=== PATIENT | female | born 2000 | race Two or more races ===

== ENCOUNTER 2024-02-28 09:13 | Emergency (ER) | payer SELFPAY ==
[2024-02-28 09:15] VITALS: PULSE 84; RESP 16; O2SAT 98; BMI 24.9
[2024-02-28 09:20] VITALS: BP 106/65; PULSE 79; RESP 18; TEMP 36.8; O2SAT 100
--- NOTE | 2024-02-28 09:27 | XR_ITS ---
Examination: CTA chest with intravenous contrast 2-D reconstructions 3-D reconstructions, vascular Date and time of exam: February 28, 2024 1102 hrs. Indications: Syncopal episodes this morning with shortness of breath chest pain CTDI: vol (mGy) 10.1 DLP: (mGycm) 219 Technique: Multiple axial sections of the thorax have been obtained. 3 mm slice thickness, from below the hemidiaphragms to above the apices of the lungs. Mediastinal and lung density settings have been obtained. 2-D sagittal and coronal reconstructions. 3-D angiographic renderings, 3-D volume renderings, 3D post processing, vascular maximum intensity projections obtained. Contrast administered is 100 cc Isovue-370. Low dose protocols were performed. One or more of the following dose reduction techniques were used; automated exposure control, adjustment of the mA and/or KV according to patient size, use of iterative reconstruction technique. Findings: No thoracic aortic aneurysmal dilatation or dissection Pulmonary artery opacification is not optimal No gross pulmonary artery emboli No paratracheal tracheobronchial or bronchopulmonary adenopathy No pneumonia, pulmonary edema or pleural disease No visualized liver or splenic lesion No gallstones No pancreatic mass Kidneys partially visualized no hydronephrosis Mild thoracic spondylosis Impression: No thoracic aortic aneurysmal dilatation or dissection Pulmonary artery opacification is not optimal, no pulmonary artery emboli are noted No pulmonary edema or aspiration pneumonia
--- NOTE | 2024-02-28 09:27 | EKG_ITS ---
[facility] Test Date: 2024-02-28 Pat Name: CHILANGO DAVALOS Department: Room: - Gender: Female [employer]: : [id number] Requested By: Chad Donato Order Number: [id number] Reading MD: Chad Donato Measurements Intervals [place] Rate: 86 P: 63 NV: 150 QRS: 59 QRSD: 74 T: 30 QT: 344 QTc: 412 Interpretive Statements SINUS RHYTHM No previous ECG available for comparison /store/S0/[id number].pdf
--- NOTE | 2024-02-28 09:27 | XR_ITS ---
Examination: CT brain head without contrast. 2-D sagittal coronal reconstructions Date and time of exam:February 28, 2024 11:03 AM Indications: Headaches several days with syncopal episode this morning CTDI: vol (mGy):47.5 DLP: (mGycm):902 Technique: Multiple CT axial sections of the brain have been obtained, 5 mm slice thickness. Contrast has not been administered. 2-D sagittal, coronal reconstructions have been obtained Low dose protocols were performed. One or more of the following dose reduction techniques were used; automated exposure control, adjustment of the mA and/or KV according to patient size, use of iterative reconstruction technique. Findings: No significant ventricular enlargement. Intra-axial or extra-axial hemorrhage density is not seen. No mass effect or midline shift Basal cisterns are not remarkable. Fourth ventricle is midline. Cranial vault intact. Impression: Negative for acute hemorrhage, mass effect or midline shift Advise clinical correlation follow-up accordingly
--- NOTE | 2024-02-28 09:44 | EDNOTE_ITS ---
ED Syncope RME/HPI General Chief Complaint: Syncope / Near Syncope Stated Complaint: SYNCOPE Time Seen by Provider: 02/28/24 09:21 Arrival date/time: 02/28/24 09:13 RME / HPI RME / HPI narrative: This section includes all my notes and documentations, including HPI, PE, and ED course.? Chad Ramirez MD HPI: 23 year old female here with about 2 week history of worsening cough, productive cough, purulent sputum, and dyspnea. And decreased appetite and minimal oral intake for several days. Went to PCP just [facility] and had syncope. No other complaints. ROS: All negative except as documented in HPI. Physical Exam: General:? Alert and oriented.? Hacking cough noted. Eyes:? Conjunctivae and lids clear.? EOMI.? PERRL. ENT:? No nasal congestion.? Pharynx normal.? Tympanic membrane normal bilaterally.??? Neck:? Supple.? No carotid bruit. ?? Heart:? RRR.? Lungs:? No respiratory distress.? Mildly decreased air movement with rhonchi. Abdomen:? Soft and nontender.? Normal bowel sounds.? No distension.? No rebound or guarding.?? Back:? No CVA tenderness.?? Legs:? No clubbing, cyanosis, edema.? Skin:? Warm and dry.?? Neuro:? Alert and oriented X 3.? Cranial Nerves II-XII grossly intact.? No peripheral motor deficits. Musculoskeletal:? All major joints and bones are not tender with no limited ROM.? I reviewed EMS notes. I reviewed all diagnostic test results. My interpretation of the EKG is sinus rhythm with nonspecific ST-T changes. My review of the head CT report is no acute findings. My review of the chest CT report is no PE. Blood tests unremarkable. Covid/Influenza/RSV/Strep/[place] negative. At this point, diagnoses include?Bronchitis and Syncope due dehydration. Treatment here included?IVF, Toradol (for headache), and Zithromax. Significant improvement noted subjectively and objectively. Based on my best medical judgment, made decision no further evaluation or treatment indicated at this time.? Patient understands and agrees to the discharge instructions customized and printed, see below. Discharge instructions from Dr. Ramirez: --After extensive evaluation, there is no life-threatening condition. Such as stroke or brain tumor or heart attack. --You have bronchitis and you passed out from dehydration. --No physical exertion for 3 days to help rest the lungs. No smoking or exposure to smoking or pets or dust or cold or humidity. --Zithromax to kill the germs causing the bronchitis. --Prednisone to help decrease the swelling in the airways. --Albuterol 2 puffs every 4-6 hours as needed for cough or shortness of breath. --To prevent passing out again, eat regular nutritious meals. For good hydration, increase oral fluid and maintain clear urine. If dark or yellow, increase oral fluid. --See a private doctor on 03/01/2024. Ask to review all test results and official radiology reports, to make sure you receive all necessary follow-ups and monitoring. To make sure there is no serious underlying heart condition, ask to help you get more tests for your heart that cannot be done here in the ER. Such as Holter Monitor (cardiac monitoring at home from a day to even a month), heart stress test (on treadmill or with medication), echocardiogram (imaging of your heart structures), heart catherization (checking for blockages in your heart arteries), and a referral to see a Dealership General Manager. And ask for help with MRI imaging of the brain and referral to see neurologist. --Seek immediate medical care with worsening or with any concerns. Chad Ramirez MD Related Data Previous Rx's ?Medication ?Instructions ?Recorded albuterol sulfate 90 mcg/actuation 2 inh inhalation QID PRN shortness 02/28/24 aerosol inhaler of breath or wheezing #8.5 grams Allergies Allergy/AdvReac Type Severity Reaction Status Date / Time No Known Allergies Allergy Verified 02/28/24 09:24 Course Quality Measures none Orders Category Date Time Status Bedside COVID-19 Antigen Test NOW Care 02/28/24 09:27 Completed Bedside Influenza A&B Antigen Test NOW Care 02/28/24 09:[address] Screening NOW Care 02/28/24 09:27 Completed EKG (ED ONLY) *Do not use* NOW Care 02/28/24 09:27 Completed Saline [Insert IV] NOW Care 02/28/24 09:[address] angio chest Stat Exams 02/28/24 09:[address] head/brain wo con Stat Exams 02/28/24 09:27 Completed EKG (ED Only) Stat Exams 02/28/24 09:27 Draft BNP [B-Type Natriuretic Peptide] Stat Lab 02/28/24 09:47 Completed Blood Culture (Lab) Stat Lab 02/28/24 09:40 Results CBC Stat Lab 02/28/24 09:47 Completed CMP [Comprehensive Metabolic Panel] Stat Lab 02/28/24 09:47 Completed CRP [C-Reactive Protein] Stat Lab 02/28/24 09:47 Completed D-Dimer Stat Lab 02/28/24 09:47 Completed ESR [Sed Rate (ESR)] Stat Lab 02/28/24 09:47 Completed HCG,Qualitative Serum Stat Lab 02/28/24 09:47 Completed Lactate (Lactic Acid) Stat Lab 02/28/24 09:47 Completed Magnesium Stat Lab 02/28/24 09:47 Completed [place] Screen Stat Lab 02/28/24 09:47 Completed Procalcitonin Stat Lab 02/28/24 09:47 Completed RSV [Respiratory Syncytial Virus Ag] Stat Lab 02/28/24 10:05 Completed Strep A Rapid Stat Lab 02/28/24 10:14 Completed TSH [Thyroid Stimulating Hormone] Stat Lab 02/28/24 09:47 Completed Troponin I Stat Lab 02/28/24 09:47 Completed Azithromycin Po [Zithromax PO] Med 02/28/24 12:22 Discontinued 500 mg PO X1 ONE Ketorolac Inj [Toradol Inj] Med 02/28/24 09:26 Discontinued 30 mg IVP X1 ONE Sodium Chloride 0.9% 1000 ml [Ns] 1,000 ml Med 02/28/24 09:26 Discontinued IV 999 mls/hr Vital Signs Vital signs: Vital Signs Temperature 98.3 F 02/28/24 09:20 Pulse Rate 79 02/28/24 09:20 Respiratory Rate 18 02/28/24 09:20 Blood Pressure 106/65 02/28/24 09:20 Pulse Oximetry (%) 100 02/28/24 09:20 Oxygen Delivery Method Room Air 02/28/24 09:20 Syncope Patient data External records reviewed:: None Clinical information provided by:: patient Social determinants that could affect healthcare access:: none Patient has the following chronic illnesses:: none How is presenting disease/condition affected by chronic disease/condition?: no chronic disease Evaluation data The following diagnostics were reviewed and interpreted by me:: lab results, rad iology exam(s) and EKG tracing(s) (My interpretation of the EKG: NSR (86 bpm) with no ST-T changes. Chad Ramirez MD) Lab and/or radiology exams considered but not ordered:: none Interpretation Summary: Bronchitis and Syncope due dehydration. Medications / Prescriptions Medications or Prescriptions considered but not ordered:: none Medication administrations:: Medication Administration History Discontinued Medications Azithromycin (Azithromycin 250 Mg Tablet) 500 mg PO X1 ONE Stop: 02/28/24 12:23 Last Admin: 02/28/24 12:40 Dose: 500 mg Documented By: GM Sodium Chloride (Ns) 1,000 mls @ 999 mls/hr IV .Q1H1M ONE Stop: 02/28/24 10:26 Last Infusion: 02/28/24 12:32 Dose: Infused Documented By: Admin: 02/28/24 10:09 Dose: 999 mls/hr Documented By: AM Ketorolac Tromethamine (Ketorolac Inj 30 Mg/Ml Vial) 30 mg IVP X1 ONE Stop: 02/28/24 09:27 Last Admin: 02/28/24 10:09 Dose: 30 mg Documented By: AM IVF, Toradol (for headache), and Zithromax Consultations Consultation(s) initiated? (list below): No Diagnosis Syncope Differential Diagnosis: syncope due to orthostatic hypotension, vasovagal syncope, complete atrioventricular block, subarachnoid hemorrhage, pulmonary embolism and dehydration Most likely diagnosis given after review of the tests above:: Bronchitis and Syncope due dehydration Admission Indicated Admission indicated?: not indicated Explain why admission is indicated or not indicated:: Admission criteria not met Admission Request Was there a request for admission?: No Disposition Plan Disposition Plan: Discharge Discharge Attestation Discharge Attestation: The patient and all family members were given an opportunity to ask questions and understood the discharge instructions. Discharge instructions specifically effects, indications for sooner follow up or return to the emergency department, and the expected course of current diagnosis. Patient condition: Stable Discharge Plan Plan Patient Disposition: HOME (Self Care) Prescriptions/Referrals Prescriptions/Med Rec: New albuterol sulfate 90 mcg/actuation HFA aerosol inhaler 2 inh inhalation QID PRN (Reason: shortness of breath or wheezing) Qty: 8.5 0RF Referrals: No Primary/Family,Physician [Primary Care Provider] - In 1 week Problem List Clinical Impression: Bronchitis, Dehydration Patient/Caregiver Discharge Instructions Discharge Activity: activity as tolerated Education Materials: ED Bronchitis with Wheezing (Adult), ED Dehydration (Adult), ED Fainting, Uncertain Cause Additional Instructions: Discharge instructions from Dr. Ramirez: --After extensive evaluation, there is no life-threatening condition. Such as stroke or brain tumor or heart attack. --You have bronchitis and you passed out from dehydration. --No physical exertion for 3 days to help rest the lungs. No smoking or exposure to smoking or pets or dust or cold or humidity. --Zithromax to kill the germs causing the bronchitis. --Prednisone to help decrease the swelling in the airways. --Albuterol 2 puffs every 4-6 hours as needed for cough or shortness of breath. --To prevent passing out again, eat regular nutritious meals. For good hydration, increase oral fluid and maintain clear urine. If dark or yellow, increase oral fluid. --See a private doctor on 03/01/2024. Ask to review all test results and official radiology reports, to make sure you receive all necessary follow-ups and monitoring. To make sure there is no serious underlying heart condition, ask to help you get more tests for your heart that cannot be done here in the ER. Such as Holter Monitor (cardiac monitoring at home from a day to even a month), heart stress test (on treadmill or with medication), echocardiogram (imaging of your heart structures), heart catherization (checking for blockages in your heart arteries), and a referral to see a Dealership General Manager. And ask for help with MRI imaging of the brain and referral to see neurologist. --Seek immediate medical care with worsening or with any concerns. Instrucciones de maureen del Dr. Ramirez: --Despu?s de raymond evaluaci?n exhaustiva, no hay ninguna afecci?n que ponga en peligro la rashi, leopoldo un derrame cerebral, un tumor cerebral o un ataque card?aco. --Tiene bronquitis y se desmay? por deshidrataci?n. --No tracee heriberto?n esfuerzo f?sico dexter 3 d?as para ayudar a que los pulmones descansen. --No fume ni se exponga al humo, a las mascotas, al polvo, al fr?o o a la humedad. --Zithromax para matar los g?rmenes que causan la bronquitis. --Prednisona para ayudar a disminuir la hinchaz?n de las v?as respiratorias. --Albuterol 2 inhalaciones cada 4 a 6 horas seg?n sea necesario para la tos o la falta de aire. --Para evitar desmayarse nuevamente, coma comidas nutritivas con regularidad. Para raymond buena hidrataci?n, aumente la cantidad de l?quido oral y mantenga la orina deepak. Si es oscura o amarilla, aumente la cantidad de l?quido oral. --Consulte a un m?dico privado el 01/03/2024. Solicite revisar todos los resultados de las pruebas y los informes radiol?gicos oficiales para asegurarse de recibir todos los seguimientos y controles necesarios. Para asegurarse de que no haya raymond afecci?n card?thalia subyacente grave, solicite ayuda para realizar m?s pruebas para [place] coraz?n que no se pueden realizar aqu? en la kvng de emergencias, leopoldo un monitor Holter (monitoreo card?aco en el hogar desde un d?a hasta un mes), raymond prueba de esfuerzo card?aco (en raymond cinta de correr o con medicaci?n), un ecocardiograma (im?genes de las estructuras del coraz?n), un cateterismo card?aco (para verificar si hay obstrucciones en las arterias del coraz?n) y raymond derivaci?n para denise a un cardi?logo. Y solicite ayuda con raymond resonancia magn?usha del cerebro y raymond derivaci?n para denise a un neur?logo. --Busque atenci?n m?dica inmediata si la enfermedad empeora o tiene alguna inquietud. Print Language: [place] Stand Alone Forms: Angelica Award Info., Work/School Release, Patient Portal Info Letter
[2024-02-28 09:57] LABS: Lactate (Lactic Acid) 1.4 mMol/L (0.4-2.0)
[2024-02-28 09:59] LABS: Basophils % (Auto) 0 % (0-2.5); Eosinophils # (Auto) 0.1 Thou/mm3 (0.0-0.5); Eosinophils % (Auto) 1 % (0-10); Hemoglobin 11.7 g/dL (12.0-16.0); Immature Granulocytes % (Auto) 0 % (0-0); Immature Granulocytes Auto 0.05 Thou/mm3 (0.00-0.00); Lymphocytes # (Auto) 1.8 Thou/mm3 (1.0-4.8); Lymphocytes % (Auto) 14 % (10-50); Mean Corpuscular HGB Conc 34.4 g/dl (31.0-37.0); Mean Corpuscular Volume 90 fL (80-100); Monocytes % (Auto) 8 % (0-12); Neutrophils # (Auto) 10.2 Thou/mm3 (1.8-7.7); Neutrophils % (Auto) 78 % (37-80); Nucleated Red Blood Cell % 0 /100 WBC (0); Platelet Count 214 Thou/mm3 (140-440); RDW Standard Deviation 38.3 fL (36.4-46.3); Red Blood Count 3.77 Miln/mm3 (4.00-5.20); White Blood Count 13.2 Thou/mm3 (3.6-11.0)
[2024-02-28] MEDS: KETOROLAC INJ 30 MG/ML VIAL IVP (10:09)
[2024-02-28] MEDS: SODIUM CHLORIDE 0.9% 1000 ML 1,000 ML 999 ML IV (10:09)
[2024-02-28 10:12] LABS: Sed Rate (ESR) 21 mm/hr (0-20)
[2024-02-28 10:27] LABS: Alanine Aminotransferase 12 U/L (10-49); Albumin, Serum 3.9 gm/dL (3.5-5.0); Albumin/Globulin Ratio 1.6 (1.2-2.2); Alkaline Phosphatase 50 U/L (46-116); Anion Gap 5 (7-16); Aspartate Amino Transferase < 8 U/L (0-34); BUN/Creatinine Ratio 13 Ratio (12-20); Bilirubin,Total 1.6 mg/dL (0.3-1.2); Blood Urea Nitrogen 10 mg/dL (9-23); C-Reactive Protein 3.1 mg/dL (0.0-0.9); Calcium 8.7 mg/dL (8.3-10.6); Calcium (Corrected) 8.8 mg/dL (8.5-10.1); Carbon Dioxide 26.1 mMol/L (20.0-31.0); Chloride 106 mMol/L (98-107); Creatinine (Component) 0.8 mg/dL (0.6-1.3); Estimated Creatinine Clearance 102.1 mL/min (>60); Globulin 2.4 gm/dL (2.3-3.5); Glucose 102 mg/dL (74-106); Magnesium 1.6 mg/dL (1.6-2.6); Osmolality,Calculated 272 (275-295); Potassium 4.1 mMol/L (3.4-5.1); Procalcitonin < 0.04 ng/ml (0.0-0.49); Sodium 137 mMol/L (136-145); Thyroid Stimulating Hormone 1.09 uIU/mL (0.55-4.78); Total Protein 6.3 gm/dL (5.7-8.2); Troponin I < 0.002 ng/mL (0.0-0.045); eGFR > 60 See Note
[2024-02-28 10:32] LABS: HCG,Qualitative Serum Negative
[2024-02-28 10:34] LABS: B-Type Natriuretic Peptide 53 pg/mL (0-100)
[2024-02-28 10:46] LABS: D-Dimer < 250 ng/mL (<600)
[2024-02-28 11:14] LABS: Strep A Rapid Negative (Negative)
[2024-02-28 11:18] LABS: Mono Screen Negative (Negative)
[2024-02-28 11:23] VITALS: BP 85/52; BP 97/59; PULSE 85; RESP 16; TEMP 37.1; O2SAT 98
[2024-02-28 11:28] LABS: Respiratory Syncytial Virus Ag Negative (Negative)
[2024-02-28] MEDS: AZITHROMYCIN 250 MG TABLET 500 MG PO (12:40)
[2024-02-28 12:48] VITALS: BP 102/54; PULSE 88; RESP 18; TEMP 36.7; O2SAT 99
== END 2024-02-28 13:14 | disposition home or self-care (01) ==
PROVIDERS: Emergency Provider Emergency Medicine
DX: J40 Bronchitis, not specified as acute or chronic (principal); E86.0 Dehydration
CPT/HCPCS: 36415; 70450; 71275; 80053; 81001; 81025; 83605; 83735; 83880; 84145; 84443; 84484; 84703; 85025; 85379; 85652; 86140; 86308; 87040; 87400; 87634; 87651; 87811; 93005; 96361; 96374; 99285; A4649; J1885; J7030; Q9967; A9270